=== PATIENT | male | born 1995 | race Asian ===

== ENCOUNTER 2018-11-09 12:30 | Emergency (ER) | payer OTHER ==
[~2018-11-09] VITALS: Ht 180.3 cm; Wt 99.8 kg
[2018-11-09 12:35] VITALS: BP 138/73; TEMP 98.2
== END 2018-11-09 13:10 | disposition home or self-care (01) ==
LOC: ED 12:30
DX: S05.02XA Injury of conjunctiva and corneal abrasion without foreign body, left eye, initial encounter (principal); Y04.2XXA Assault by strike against or bumped into by another person, initial encounter; Y92.149 Unspecified place in prison as the place of occurrence of the external cause
CPT/HCPCS: 99283